=== PATIENT | male | born 1990 | race Caucasian/White ===

== ENCOUNTER 2019-01-19 01:34 | Emergency (ER) | payer MEDICAID ==
[~2019-01-19] VITALS: Ht 188 cm; Wt 89.4 kg
[2019-01-19 01:45] VITALS: BP_SYST 134
--- NOTE | 2019-01-19 01:45 | NUR ---
Patient to ER bed 7 to gown for evaluation. Side rails up.
--- NOTE | 2019-01-19 01:50 | NUR ---
Pt complains of diarrhea x 8 times since 8 pm and vomiting x 5 since 8pm. Per pt, he's been having abdominal pain as well and states he took immodium with no relief of the diarrhea. Pt denies fever. No other injuries/complaints per patient or noted.
--- NOTE | 2019-01-19 02:00 | NUR ---
ER Dr. Florez at bedside examining patient.
[2019-01-19] MEDS ORDERED: NACL 0.9% 1,000 ML IV ONE (02:07)
[2019-01-19] MEDS ORDERED: ONDANSETRON HCL 4 MG/2 ML VIAL IVP ONE ×2 (02:15→04:45)
[2019-01-19] MEDS ORDERED: MORPHINE 4 MG/ML INJ. SYRINGE IVP ONE ×3 (02:15→04:45)
[2019-01-19] MEDS ORDERED: PANTOPRAZOLE SODIUM 40 MG/VIAL (PROTONIX) IVP ONE (02:15)
[2019-01-19 02:36] LABS: BASOPHILS % (AUTO) 0.3 % (0.0-2.0); EOSINOPHILS % (AUTO) 0.3 % (0.0-4.0); HEMATOCRIT 50.1 % (36-54); HEMOGLOBIN 17.5 g/dL (14.0-18.0); LYMPHOCYTES # (AUTO) 1.4 K/uL (1.0-5.5); LYMPHOCYTES % (AUTO) 11.2 % (20.5-51.5); MEAN CORPUSCULAR HEMOGLOBIN 31 pg (27-31); MEAN CORPUSCULAR HGB CONC 35 % (32-36); MEAN CORPUSCULAR VOLUME 89 fL (79.0-98.0); MONOCYTES # (AUTO) 0.9 K/uL (0.0-1.0); NEUTROPHILS # (AUTO) 10.3 K/uL (1.8-7.7); NEUTROPHILS % (AUTO) 81.2 % (40.0-70.0); PLATELET COUNT (AUTO) 262 K/uL (130-430); RED BLOOD CELL COUNT(AUTO) 5.62 MIL/uL (4.2-6.2); RED CELL DISTRIBUTION WIDTH 13.2 % (9.0-15.0); WHITE BLOOD COUNT (AUTO) 12.7 K/uL (4.8-10.8)
[2019-01-19 02:51] LABS: CALCIUM 10.2 mg/dL (8.4-11.0); CREATININE 1.09 mg/dL (0.55-1.30); POTASSIUM 3.7 mmol/L (3.5-5.1)
[2019-01-19 03:05] LABS: ALBUMIN 5.2 g/dL (3.4-4.8)
--- NOTE | 2019-01-19 03:25 | NUR ---
Medications were given, pt tolerated well. No adverse reaction, will continue to monitor.
[2019-01-19] MEDS: DICYCLOMINE HCL 10 MG/5 ML SOLUTION PO ONE ×2 (03:52→04:50)
[2019-01-19] MEDS ORDERED: ONDANSETRON HCL 4 MG/2 ML VIAL ONE (04:21)
--- NOTE | 2019-01-19 04:55 | NUR ---
Medication was given, pt tolerated well. No adverse reaction, will continue to monitor.
[2019-01-19 05:09] LABS: BILIRUBIN,URINE 1+ (NEGATIVE); CLARITY/URINE CLEAR (CLEAR); COLOR,URINE YELLOW (YELLOW); GLUCOSE,URINE NEGATIVE (NEGATIVE); KETONES,URINE 3+ (NEGATIVE); LEUKOCYTE ESTERASE ,URINE NEGATIVE (NEGATIVE); NITRITE, URINE NEGATIVE (NEGATIVE); PROTEIN URINE NEGATIVE (NEGATIVE); UROBILINOGEN,URINE 0.2 (0.2-1.0)
--- NOTE | 2019-01-19 05:30 | NUR ---
pt sleeping comfortably in bed. No acute distress will continue to monitor.
[2019-01-19 05:39] LABS: BLOOD, URINE TRACE (NEGATIVE)
[2019-01-19 06:05] LABS: BACTERIA,URINE FEW /HPF (None Seen); WBC,URINE 0-3 /HPF (0-3)
--- NOTE | 2019-01-19 06:26 | NUR ---
Zenobia Florez at bedside explaining results to patient.
--- NOTE | 2019-01-19 07:15 | NUR ---
Gave report to RAVINDER Acevedo. All care endorsed.
[2019-01-19 08:02] VITALS: BP_SYST 120
--- NOTE | 2019-01-19 08:02 | NUR ---
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
--- NOTE | 2019-01-19 08:02 | NUR ---
Patient given written and verbal discharge instructions and verbalizes understanding. ER MD discussed with patient the results and treatment provided. Patient in stable condition. ID arm band removed. IV catheter removed intact and dressing applied, no active bleeding. Rx of zofran, lomotil,protonix given. Patient educated on pain management and to follow up with PMD. Pain Scale 0. Opportunity for questions provided and answered. Medication side effect fact sheet provided.
== END 2019-01-19 08:02 | disposition home or self-care (01) ==
LOC: SED 01:34
DX: R10.9 Unspecified abdominal pain (principal); R19.7 Diarrhea, unspecified; R11.10 Vomiting, unspecified; Z90.49 Acquired absence of other specified parts of digestive tract; Z90.89 Acquired absence of other organs
CPT/HCPCS: 36415; 80053; 81000; 83690; 85025; 96361; 96374; 96375; 96376; 99283; C9113; J2270; J2405; J7030